=== PATIENT | female | born 1960 | race Caucasian/White ===

== ENCOUNTER 2023-01-28 09:55 | Day surgery (SDC) | payer MEDICARE, MEDICAID ==
[2023-01-24 10:18] LABS: BASOPHILS # (AUTO) 0.1 X10'3 (0-0.2); BASOPHILS % (AUTO) 0.7 % (0-1); EOSINOPHILS # (AUTO) 0.4 X10'3 (0-0.9); EOSINOPHILS % (AUTO) 3.3 % (0-6); LYMPHOCYTES # (AUTO) 3.2 X10'3 (1.1-4.8); LYMPHOCYTES % (AUTO) 28.4 % (21-51); MEAN CORPUSCULAR HEMOGLOBIN 27.6 PG (27.0-31.0); MEAN CORPUSCULAR HGB CONC 33.2 g/dL (33.0-36.5); MEAN CORPUSCULAR VOLUME 82.9 FL (78-98); MEAN PLATELET VOLUME 8.2 FL (7.4-10.4); MONOCYTES # (AUTO) 0.6 X10'3 (0-0.9); MONOCYTES % (AUTO) 5.2 % (2-12); NEUTROPHILS # (AUTO) 7.1 X10'3 (1.8-7.7); NEUTROPHILS % (AUTO) 62.4 % (42-75); PRE OP HEMATOCRIT 45.5 % (35.0-45.0); PRE OP HEMOGLOBIN 15.1 g/dL (12.0-16.0); PRE OP PLATELET COUNT 259 X10'3 (140-440); RED BLOOD COUNT 5.48 X10'6 (4.20-5.60); RED CELL DISTRIBUTION WIDTH 15.4 % (11.5-14.5)
[2023-01-24 10:39] LABS: ALBUMIN 3.9 G/DL (3.4-5.0); ALBUMIN/GLOBULIN RATIO 1.1 (1.1-1.5); ALKALINE PHOSPHATASE 103 IU/L (46-116); BLOOD UREA NITROGEN 20 MG/DL (7-18); CALCIUM 9.2 MG/DL (8.5-10.1); CHLORIDE 101 MMOL/L (99-107); CREATININE 0.77 MG/DL (0.40-0.90); PRE OP ALT 28 U/L (30-65); PRE OP ANION GAP 8 (8-16); PRE OP AST 19 U/L (10-37); PRE OP BILIRUB, TOTAL 0.5 MG/DL (0.0-1.0); PRE OP GLUCOSE 123 MG/DL (70-104); PRE OP POTASSIUM 4.2 MMOL/L (3.4-5.1); PRE OP SODIUM 134 MMOL/L (135-145); TOTAL CARBON DIOXIDE 24.7 MMOL/L (24-32); TOTAL PROTEIN 7.6 G/DL (6.4-8.2); eGFR 75 ML/MIN
[~2023-01-28] VITALS: Ht 175.3 cm; Wt 98.1 kg
[2023-01-28] VITALS (21 sets, daily range): BP systolic 110–159; BP diastolic 58–98
[~2023-01-28 09:55] MED LIST: ATOR10TA70 PO; ESTR1TAB28 PO; HYDR-3972 PO; METH-806 PO; NARA2.5T2 PO; OMEP40CA21 PO; PARO20TA6 PO; PREG150C46 PO; PROM25TA14 PO; ZOLP10TA PO; cefazolin 2gm/D5W 100mL 100 ML IV ONE; famotidine 20mg tablet PO ONE; ringers solution, lacted 1,000 ML IV SCH
[2023-01-28] MEDS ORDERED: ROPIVAcaine 0.5% (5mg/ml) 30ml vial ONE ×2 (10:46)
[2023-01-28] MEDS ORDERED: dexamethasone sod phosphate 4mg/ml inj. ONE (10:46)
[2023-01-28] MEDS ORDERED: propofol inj 20 ML IV ONE (10:46)
[2023-01-28] MEDS ORDERED: LIDOcaine 1%/PF 5ML 10 MG/ML VIAL ONE (10:46)
[2023-01-28] MEDS ORDERED: ondansetron/PF 4mg/2ml inj ONE (10:46)
[2023-01-28] MEDS ORDERED: sevoflurane 250ml liquid IH ONE (10:48)
[2023-01-28] MEDS ORDERED: acetaminophen 1,000mg/100ml IV 100 ML IV ONE (11:37)
[2023-01-28] MEDS ORDERED: ringers solution, lacted 1,000 ML IV SCH (11:40)
[2023-01-28] MEDS ORDERED: ondansetron/PF 4mg/2ml inj IV PRN (11:40)
[2023-01-28] MEDS ORDERED: fentaNYL/PF 50MCG/1 ML 2ML syringe IV PRN ×2 (11:40)
[2023-01-28] MEDS ORDERED: HYDROmorphone/PF 0.2 MG/ML SYRINGE IV PRN ×2 (11:40)
--- NOTE | 2023-01-28 12:33 | NUR ---
Received from OR via [facility], accompanied by Anesthesiologist and report given by GENNY Anesthesiologist. PATIENT IS DROWSY WITH ORAL AIRWAY, NO S/S OF PAIN, V/S WNL, PIV 20G TO LEFT FOREARM, RIGHT WRIST DRESSING C/D/I. ICE AND ELEVATED RUE. Addendum: 01/28/23 at 1305 by Juanjo Deshpande RN Amended: Links added.
[2023-01-28] MEDS ORDERED: ipratropium/albuterol 3ml nebule NEB PRN (12:40)
--- NOTE | 2023-01-28 15:58 | NUR ---
ALL DISCHARGE CRITERIA HAS BEEN MET. VSS, PAIN AT A TOLERABLE LEVEL, VOIDING AND ABLE TO SAFELY AMBULATE WITH ARM SLING AND TRANSFER SELF. IV TAKEN OUT WITHOUT ANY COMPLICATIONS. ALL DISCHARGE INSTRUCTIONS COVERED WITH PATIENT AND ALL QUESTIONS ANSWERED. PATIENT TAKEN OUT VIA WHEELCHAIR WITH ALL BELONGINGS TO PERSONAL VEHICLE WHERE FRIEND DROVE PATIENT HOME. Addendum: 01/28/23 at 1612 by Juanjo Deshpande RN Amended: Links added.
== END 2023-01-28 15:58 | disposition home or self-care (01) ==
LOC: PAS 09:55
PROVIDERS: ATTEND Orthopaedic Surgery Hand Surgery
DX: M65.331 Trigger finger, right middle finger (principal); G56.01 Carpal tunnel syndrome, right upper limb; S52.591P Other fractures of lower end of right radius, subsequent encounter for closed fracture with malunion; G89.18 Other acute postprocedural pain; I10 Essential (primary) hypertension; G89.29 Other chronic pain; M19.90 Unspecified osteoarthritis, unspecified site; F32.A Depression, unspecified; G43.909 Migraine, unspecified, not intractable, without status migrainosus; F17.210 Nicotine dependence, cigarettes, uncomplicated; Z98.890 Other specified postprocedural states; Z90.710 Acquired absence of both cervix and uterus; Z90.49 Acquired absence of other specified parts of digestive tract; Z87.11 Personal history of peptic ulcer disease; Z88.8 Allergy status to other drugs, medicaments and biological substances; Z79.899 Other long term (current) drug therapy; X58.XXXD Exposure to other specified factors, subsequent encounter
CPT/HCPCS: 25400; 26055; 36415; 64417; 64721; 80053; 82948; 85025; 93005; 94640; C1713; J0131; J0690; J1100; J2405; J2704; J2795; J3490; J7030; J7120; Z7506; Z7508; Z7512; A4215; A4565; A4615; A4618; A7000

== ENCOUNTER 2023-03-11 11:17 | Day surgery (SDC) | payer MEDICARE, MEDICAID ==
[2023-03-08 10:42] LABS: BASOPHILS # (AUTO) 0.1 X10'3 (0-0.2); BASOPHILS % (AUTO) 0.5 % (0-1); EOSINOPHILS # (AUTO) 0.4 X10'3 (0-0.9); EOSINOPHILS % (AUTO) 3.6 % (0-6); HEMATOCRIT 42.8 % (35.0-45.0); HEMOGLOBIN 14.2 g/dl (12.0-16.0); LYMPHOCYTES % (AUTO) 30.4 % (21-51); MEAN CORPUSCULAR HEMOGLOBIN 27.7 PG (27.0-31.0); MEAN CORPUSCULAR HGB CONC 33.2 g/dL (33.0-36.5); MEAN CORPUSCULAR VOLUME 83.4 FL (78-98); MEAN PLATELET VOLUME 7.6 FL (7.4-10.4); MONOCYTES # (AUTO) 0.5 X10'3 (0-0.9); MONOCYTES % (AUTO) 5.3 % (2-12); NEUTROPHILS % (AUTO) 60.2 % (42-75); PLATELET COUNT 254 X10'3 (140-440); RED BLOOD COUNT 5.13 X10'6 (4.20-5.60); RED CELL DISTRIBUTION WIDTH 15.8 % (11.5-14.5)
[2023-03-08 10:48] LABS: ALANINE AMINOTRANSFERASE 21 U/L (12-78); ALBUMIN 3.6 G/DL (3.4-5.0); ALBUMIN/GLOBULIN RATIO 0.9 (1.1-1.5); ALKALINE PHOSPHATASE 133 IU/L (46-116); ANION GAP 10 (8-16); ASPARTATE AMINO TRANSFERASE 15 U/L (10-37); BILIRUBIN,TOTAL 0.5 MG/DL (0.1-1.0); BLOOD UREA NITROGEN 13 MG/DL (7-18); BUN/CREATININE RATIO 15.1 (10.0-20.0); CALCIUM 9.1 MG/DL (8.5-10.1); CHLORIDE 102 MMOL/L (99-107); CREATININE 0.86 MG/DL (0.40-0.90); GLUCOSE 129 MG/DL (70-104); POTASSIUM 4.1 MMOL/L (3.5-5.1); SODIUM 138 MMOL/L (135-145); TOTAL PROTEIN 7.4 G/DL (6.4-8.2); eGFR 66 ML/MIN
[~2023-03-11] VITALS: Ht 175.3 cm; Wt 93.2 kg
[2023-03-11] VITALS (12 sets, daily range): BP systolic 108–150; BP diastolic 64–89; PULSE 65–84; RESP 9–16; TEMP 97.8; O2SAT 91–96
[~2023-03-11 11:17] MED LIST changes: +albuterol 2.5 MG/3 ML nebule NEB ONE
[2023-03-11] MEDS ORDERED: meperidine/PF 25mg/ml syringe IV ONE (12:00)
[2023-03-11] MEDS ORDERED: BUPIVAcaine/PF 2.5mg/ml (0.25%) 10ml vial ONE (13:24)
[2023-03-11] MEDS ORDERED: cloNIDine hcl/PF 100mcg/ml inj ONE (13:34)
[2023-03-11] MEDS ORDERED: midazolam 1 mg/ML 2ml injection ONE (13:36)
[2023-03-11] MEDS ORDERED: fentaNYL/PF 50MCG/1 ML 2ML syringe ONE (13:36)
[2023-03-11] MEDS ORDERED: meperidine/PF 25mg/ml syringe IV PRN ×3 (13:45)
[2023-03-11] MEDS ORDERED: ringers solution, lacted 1,000 ML IV SCH (13:45)
[2023-03-11] MEDS ORDERED: ondansetron/PF 4mg/2ml inj IV PRN (13:45)
[2023-03-11] MEDS ORDERED: morphine 4 MG/ML inj SYRINge IV PRN (13:45)
[2023-03-11] MEDS ORDERED: morphine 2 MG/ML inj. syringe IV PRN (13:45)
[2023-03-11] MEDS ORDERED: proCHLORperazine 10 MG/2 ml inj IV PRN (13:45)
[2023-03-11] MEDS ORDERED: sevoflurane 250ml liquid IH ONE (13:47)
[2023-03-11] MEDS ORDERED: albuterol 60 PUFF/8GM Inhaler (90mcg/1 puff) IH ONE (13:47)
[2023-03-11] MEDS ORDERED: ROPIVAcaine 0.5% (5mg/ml) 30ml vial ONE (15:15)
[2023-03-11] MEDS ORDERED: propofol inj 20 ML IV ONE (15:15)
[2023-03-11] MEDS ORDERED: dexamethasone sod phosphate 4mg/ml inj. ONE (15:15)
[2023-03-11] MEDS ORDERED: ondansetron/PF 4mg/2ml inj ONE (15:15)
--- NOTE | 2023-03-11 15:37 | NUR ---
PATIENT ARRIVED FROM OR VIA GURNEY. DENIES PAIN. RIGHT WRIST DRESSING CDI, AXILLARY BLOCK, SLING PLACED. RIGHT WRIST 20G PIV WITH LR RUNNING. OXYGEN 10L MASK, PER DR. TURK PATIENT NEEDS DUONEB TREATMENT, RT PAGED.
[2023-03-11] MEDS ORDERED: ipratropium/albuterol 3ml nebule NEB STA (16:08)
--- NOTE | 2023-03-11 17:17 | NUR ---
PATIENT DELAYED DISCHARGE DUE TO DECREASED OXYGEN, REQUIRING O2 VIA NASAL CANULA PLUS BREATHING TREATMENT. DENIES PAIN. SLING IN PLACE TO RIGHT ARM, EDUCATED ON BLOCK. DISCHARGE PAPERWORK REVIEWED AND UNDERSTOOD BY PATIENT. ALL BELONGINGS SENT WITH PATIENT AND DISCHARGED INTO THE CARE OF TOPHER GREENE.
== END 2023-03-11 17:07 | disposition home or self-care (01) ==
LOC: PAS 11:17
PROVIDERS: ATTEND Orthopaedic Surgery Hand Surgery
DX: S52.501K Unspecified fracture of the lower end of right radius, subsequent encounter for closed fracture with nonunion (principal); J45.909 Unspecified asthma, uncomplicated; I10 Essential (primary) hypertension; G43.909 Migraine, unspecified, not intractable, without status migrainosus; E66.9 Obesity, unspecified; Z68.30 Body mass index [BMI] 30.0-30.9, adult; B27.00 Gammaherpesviral mononucleosis without complication; F17.210 Nicotine dependence, cigarettes, uncomplicated; G89.18 Other acute postprocedural pain; Z90.49 Acquired absence of other specified parts of digestive tract; Z90.710 Acquired absence of both cervix and uterus; Z79.899 Other long term (current) drug therapy; Z98.890 Other specified postprocedural states; X58.XXXD Exposure to other specified factors, subsequent encounter
CPT/HCPCS: 20680; 25400; 36415; 64417; 80053; 82948; 85025; 94640; 94760; A6222; C1713; J0690; J0735; J1100; J2175; J2250; J2405; J2704; J2795; J3010; J3490; J7030; J7120; Z7506; Z7508; Z7512; A4615; A4618; A6449; A7000

== ENCOUNTER 2023-09-02 07:33 | Day surgery (SDC) | payer MEDICARE, MEDICAID ==
[2023-08-29 11:05] LABS: BASOPHILS # (AUTO) 0.1 X10'3 (0-0.2); EOSINOPHILS # (AUTO) 0.5 X10'3 (0-0.9); EOSINOPHILS % (AUTO) 5.5 % (0-6); LYMPHOCYTES # (AUTO) 3.3 X10'3 (1.1-4.8); LYMPHOCYTES % (AUTO) 34.3 % (21-51); MEAN CORPUSCULAR HEMOGLOBIN 28.1 PG (27.0-31.0); MEAN CORPUSCULAR HGB CONC 33.4 g/dL (33.0-36.5); MEAN PLATELET VOLUME 7.8 FL (7.4-10.4); MONOCYTES # (AUTO) 0.5 X10'3 (0-0.9); MONOCYTES % (AUTO) 5.2 % (2-12); NEUTROPHILS # (AUTO) 5.2 X10'3 (1.8-7.7); PRE OP HEMATOCRIT 45.3 % (35.0-45.0); PRE OP HEMOGLOBIN 15.2 g/dL (12.0-16.0); PRE OP PLATELET COUNT 251 X10'3 (140-440); PRE OP WHITE BLOOD COUNT 9.7 10'3 (4.8-10.8); RED CELL DISTRIBUTION WIDTH 15.5 % (11.5-14.5)
[2023-08-29 11:13] LABS: ALBUMIN 4.1 G/DL (3.4-5.0); ALBUMIN/GLOBULIN RATIO 1.1 (1.1-1.5); ALKALINE PHOSPHATASE 142 IU/L (46-116); BLOOD UREA NITROGEN 7 MG/DL (7-18); BUN/CREATININE RATIO 9.2 (10.0-20.0); CHLORIDE 103 MMOL/L (99-107); CREATININE 0.76 MG/DL (0.40-0.90); PRE OP ALT 23 U/L (30-65); PRE OP ANION GAP 8 (8-16); PRE OP AST 15 U/L (10-37); PRE OP BILIRUB, TOTAL 0.5 MG/DL (0.0-1.0); PRE OP GLUCOSE 108 MG/DL (70-104); PRE OP POTASSIUM 3.8 MMOL/L (3.4-5.1); PRE OP SODIUM 140 MMOL/L (135-145); TOTAL CARBON DIOXIDE 28.7 MMOL/L (24-32); TOTAL PROTEIN 7.8 G/DL (6.4-8.2); eGFR 76 ML/MIN
[~2023-09-02] VITALS: Ht 175.3 cm; Wt 93.2 kg
[2023-09-02] MEDS: ringers solution, lacted 1,000 ML IV SCH (05:30)
[~2023-09-02 07:33] MED LIST changes: -HYDR-3972 PO; -NARA2.5T2 PO; -PREG150C46 PO; +PREG150C47 PO; -albuterol 2.5 MG/3 ML nebule NEB ONE; -famotidine 20mg tablet PO ONE; -ringers solution, lacted 1,000 ML IV SCH
[2023-09-02 08:30] VITALS: BP 146/82; PULSE 84; RESP 16; TEMP 98.7; O2SAT 95
[2023-09-02] MEDS: famotidine 20mg tablet PO ONE (08:41)
[2023-09-02] MEDS ORDERED: midazolam 1 mg/ML 2ml injection ONE (10:27)
[2023-09-02] MEDS ORDERED: fentaNYL/PF 50MCG/1 ML 2ML syringe ONE (10:27)
[2023-09-02] MEDS ORDERED: LIDOcaine 0.5% (5mg/ml) 50ml vial ONE (10:28)
[2023-09-02] MEDS ORDERED: propofol inj 20 ML IV ONE ×2 (10:28→10:45)
[2023-09-02] MEDS: BUPIVAcaine/PF 2.5 mg/ml (0.25%) 30ml vial IJ ONE (10:58)
[2023-09-02 11:30] VITALS: BP 115/84; PULSE 74; RESP 15; O2SAT 94
[2023-09-02] MEDS ORDERED: ondansetron/PF 4mg/2ml inj IV PRN (11:35)
[2023-09-02] MEDS ORDERED: meperidine/PF 25mg/ml syringe IV PRN ×3 (11:35)
[2023-09-02] MEDS ORDERED: proCHLORperazine 10 MG/2 ml inj IV PRN (11:35)
[2023-09-02] MEDS ORDERED: ringers solution, lacted 1,000 ML IV SCH (11:35)
[2023-09-02] MEDS ORDERED: morphine 4 MG/ML inj SYRINge IV PRN (11:35)
[2023-09-02] MEDS ORDERED: morphine 2 MG/ML inj. syringe IV PRN (11:35)
[2023-09-02 11:40] VITALS: BP 127/64; PULSE 81; RESP 14; O2SAT 95
[2023-09-02 11:50] VITALS: BP 124/66; PULSE 79; RESP 13; O2SAT 96
[2023-09-02 12:00] VITALS: BP 121/68; PULSE 74; RESP 13; O2SAT 96
[2023-09-02] MEDS ORDERED: BUPIVAcaine/PF 2.5mg/ml (0.25%) 10ml vial ONE (13:27)
== END 2023-09-02 12:00 | disposition home or self-care (01) ==
LOC: PAS 07:33
PROVIDERS: ATTEND Orthopaedic Surgery Hand Surgery
DX: G56.01 Carpal tunnel syndrome, right upper limb (principal); G56.21 Lesion of ulnar nerve, right upper limb; M25.531 Pain in right wrist; I10 Essential (primary) hypertension; G43.909 Migraine, unspecified, not intractable, without status migrainosus; K21.9 Gastro-esophageal reflux disease without esophagitis; J44.9 Chronic obstructive pulmonary disease, unspecified; E66.9 Obesity, unspecified; Z68.29 Body mass index [BMI] 29.0-29.9, adult; G89.29 Other chronic pain; Z79.899 Other long term (current) drug therapy; Z90.710 Acquired absence of both cervix and uterus; Z90.49 Acquired absence of other specified parts of digestive tract; Z98.890 Other specified postprocedural states; F17.210 Nicotine dependence, cigarettes, uncomplicated; Z87.11 Personal history of peptic ulcer disease
CPT/HCPCS: 29846; 36415; 64718; 64721; 80053; 82948; 85025; J0690; J2250; J2704; J3010; J3490; J7030; J7120; Z7506; Z7508; Z7512; A4215; A4618; A6402; A7000

== ENCOUNTER 2024-01-06 09:07 | Day surgery (SDC) | payer MEDICARE, MEDICAID ==
[2023-12-30 12:07] LABS: BASOPHILS # (AUTO) 0.1 X10'3 (0-0.2); BASOPHILS % (AUTO) 0.8 % (0-1); EOSINOPHILS # (AUTO) 0.3 X10'3 (0-0.9); EOSINOPHILS % (AUTO) 2.9 % (0-6); LYMPHOCYTES # (AUTO) 3.3 X10'3 (1.1-4.8); LYMPHOCYTES % (AUTO) 30.1 % (21-51); MEAN CORPUSCULAR HEMOGLOBIN 28.5 PG (27.0-31.0); MEAN CORPUSCULAR HGB CONC 34.2 g/dL (33.0-36.5); MEAN CORPUSCULAR VOLUME 83.2 FL (78-98); MEAN PLATELET VOLUME 8.1 FL (7.4-10.4); MONOCYTES # (AUTO) 0.6 X10'3 (0-0.9); MONOCYTES % (AUTO) 5.4 % (2-12); NEUTROPHILS # (AUTO) 6.7 X10'3 (1.8-7.7); NEUTROPHILS % (AUTO) 60.8 % (42-75); PRE OP HEMATOCRIT 46.5 % (35.0-45.0); PRE OP HEMOGLOBIN 15.9 g/dL (12.0-16.0); PRE OP PLATELET COUNT 264 X10'3 (140-440); PRE OP WHITE BLOOD COUNT 11.1 10'3 (4.8-10.8); RED BLOOD COUNT 5.58 X10'6 (4.20-5.60); RED CELL DISTRIBUTION WIDTH 15.7 % (11.5-14.5)
[2023-12-30 12:23] LABS: ALBUMIN 4.1 G/DL (3.4-5.0); ALBUMIN/GLOBULIN RATIO 1.1 (1.1-1.5); ALKALINE PHOSPHATASE 142 IU/L (46-116); BLOOD UREA NITROGEN 9 MG/DL (7-18); BUN/CREATININE RATIO 12.5 (10.0-20.0); CALCIUM 9.1 MG/DL (8.5-10.1); CHLORIDE 103 MMOL/L (99-107); CREATININE 0.72 MG/DL (0.40-0.90); PRE OP ALT 19 U/L (30-65); PRE OP ANION GAP 8 (8-16); PRE OP AST 16 U/L (10-37); PRE OP BILIRUB, TOTAL 0.8 MG/DL (0.0-1.0); PRE OP GLUCOSE 94 MG/DL (70-104); PRE OP POTASSIUM 3.8 MMOL/L (3.4-5.1); PRE OP SODIUM 138 MMOL/L (135-145); TOTAL CARBON DIOXIDE 26.9 MMOL/L (24-32); TOTAL PROTEIN 7.9 G/DL (6.4-8.2); eGFR 81 ML/MIN
[~2024-01-06] VITALS: Ht 175.3 cm; Wt 90.8 kg
[2024-01-06] VITALS (12 sets, daily range): BP systolic 107–139; BP diastolic 75–83; PULSE 83–96; RESP 12–25; TEMP 98.4–98.7; O2SAT 91–98
[~2024-01-06 09:07] MED LIST changes: +LIDOcaine 1% (10mg/ml)w/preservative inj. 20ml MDV ONE; -ZOLP10TA PO; -cefazolin 2gm/D5W 100mL 100 ML IV ONE
[2024-01-06] MEDS ORDERED: fentaNYL/PF 50MCG/1 ML 2ML syringe ONE (09:47)
[2024-01-06] MEDS ORDERED: MIDAZolam 1 MG/ML 5ML VIAL ONE (09:47)
[2024-01-06] MEDS: cefazolin 2gm/D5W 100mL 100 ML IV ONE (09:50)
[2024-01-06] MEDS: famotidine 20mg tablet PO ONE (09:50)
[2024-01-06] MEDS: ringers solution, lacted 1,000 ML IV SCH (09:50)
[2024-01-06] MEDS ORDERED: ketorolac trometh. 30mg/ml inj. ONE (10:25)
[2024-01-06] MEDS: BUPIVAcaine/PF 2.5mg/ml (0.25%) 10ml vial ONE (14:36)
[2024-01-06] MEDS: LIDOcaine 1% 30ml preserv. free vial ONE (14:37)
== END 2024-01-06 12:07 | disposition home or self-care (01) ==
LOC: PAS 09:07
PROVIDERS: ATTEND Orthopaedic Surgery Hand Surgery
DX: S63.501A Unspecified sprain of right wrist, initial encounter (principal); I10 Essential (primary) hypertension; J44.9 Chronic obstructive pulmonary disease, unspecified; E66.9 Obesity, unspecified; K21.9 Gastro-esophageal reflux disease without esophagitis; F32.A Depression, unspecified; F17.210 Nicotine dependence, cigarettes, uncomplicated; Z79.891 Long term (current) use of opiate analgesic; Z79.899 Other long term (current) drug therapy; Z90.49 Acquired absence of other specified parts of digestive tract; Z90.710 Acquired absence of both cervix and uterus; Z98.890 Other specified postprocedural states; Z68.29 Body mass index [BMI] 29.0-29.9, adult; X58.XXXA Exposure to other specified factors, initial encounter; Y93.89 Activity, other specified; Y92.89 Other specified places as the place of occurrence of the external cause; Y99.8 Other external cause status
CPT/HCPCS: 25240; 29846; 36415; 80053; 82948; 85025; A4215; A4618; A6449; A7000; J0690; J1885; J2001; J2250; J3010; J3490; J7030; J7120; Z7506; Z7508; Z7512; Z7610